=== PATIENT | male | born 1960 | race Caucasian/White ===

== ENCOUNTER → 2024-07-14 13:59 | Outpatient (REF) | payer BC, SELFPAY | LOC: HWRAD 13:59 | PROVIDERS: ATTENDING PHYSICIAN Internal Medicine | DX: J41.8 Mixed simple and mucopurulent chronic bronchitis (principal) | CPT/HCPCS: 71250 ==

== ENCOUNTER → 2024-12-31 08:59 | Outpatient (REF) | payer MEDICARE, OTHER, SELFPAY | LOC: RST 08:59 | PROVIDERS: ATTENDING PHYSICIAN Otolaryngology; FAMILY PHYSICIAN Internal Medicine | DX: R13.10 Dysphagia, unspecified (principal); J38.4 Edema of larynx | CPT/HCPCS: 70491; 74221; 74230; 92611; Q9967 ==

== ENCOUNTER → 2025-01-11 10:49 | Outpatient (REF) | payer MEDICARE, OTHER, SELFPAY | LOC: DHSLP 10:49 | PROVIDERS: ATTENDING PHYSICIAN Internal Medicine Critical Care Medicine; FAMILY PHYSICIAN Internal Medicine | DX: G47.33 Obstructive sleep apnea (adult) (pediatric) (principal); R09.02 Hypoxemia | CPT/HCPCS: 95800 ==

== ENCOUNTER → 2025-02-15 13:05 | Outpatient (REF) | payer MEDICARE, OTHER, SELFPAY | LOC: RAD 13:05 | PROVIDERS: ATTENDING PHYSICIAN Otolaryngology; FAMILY PHYSICIAN Internal Medicine Critical Care Medicine | DX: R05.3 Chronic cough (principal); R06.09 Other forms of dyspnea; R91.8 Other nonspecific abnormal finding of lung field; R59.9 Enlarged lymph nodes, unspecified | CPT/HCPCS: 71250; 76536 ==